=== PATIENT | male | born 1985 | race Caucasian/White ===

== ENCOUNTER 2024-12-23 06:16 | Day surgery (SDC) | payer OTHER, SELFPAY | END 2024-12-23 10:55 | disposition home or self-care (01) | LOC: GI 06:16 | PROVIDERS: ATTENDING PHYSICIAN Internal Medicine | DX: Z12.11 Encounter for screening for malignant neoplasm of colon (principal); D12.3 Benign neoplasm of transverse colon; Z83.72 Family history of familial adenomatous polyposis; Z84.81 Family history of carrier of genetic disease | CPT/HCPCS: 45380; 88305 ==